=== PATIENT | female | born 1965 | race American Indian/Alaskan Native ===

== ENCOUNTER 2016-12-06 08:40 | Emergency (ER) | payer SELFPAY ==
[2016-12-06] MEDS ORDERED: ZOFRAN IV ONE (20:24)
[2016-12-06] MEDS ORDERED: CATAPRES PO ONE (20:24)
[2016-12-06] MEDS ORDERED: ATIVAN IV ONE (20:24)
[2016-12-06 20:56] LABS: Bilirubin,Urine Negative (Negative); Blood,Urine Large (Negative); Ketones,Urine 20 mg/dL (Negative); Urobilinogen,Urine < 2.0 mg/dL (<2.0)
[2016-12-06 20:57] LABS: Leukocyte Esterase,Urine Negative (Negative); Nitrite,Urine Negative (Negative); WBC,Urine < 1.0 /HPF (0.0-6.0)
[2016-12-06 20:58] LABS: Hematocrit 46.2 % (30.3-42.9); Hemoglobin 15.5 gm/dl (10.1-14.3); Mean Corpuscular HGB Conc 34 % (30-34); Mean Corpuscular Hemoglobin 34 pg (28-32); Mean Corpuscular Volume 101 fl (79-97); Red Blood Count 4.57 M/mm3 (3.65-5.03); Red Cell Distribution Width 13.4 % (13.2-15.2)
[2016-12-06 20:59] LABS: Platelet Count 237 K/mm3 (140-440)
[2016-12-06] MEDS ORDERED: NACL 0.9% 1000 ML 1,000 ML IV ONE (21:40)
--- NOTE | 2016-12-06 21:42 | Emergency Department Report ---
ED Abdominal Pain HPI - General Chief Complaint: Abdominal Pain Time Seen by Provider: 12/06/16 20:05 Source: patient Mode of arrival: Ambulatory Limitations: No Limitations - History of Present Illness Initial Comments: 51-year-old female with past medical history hypertension and previous surgical history of tubal ligation presents to the hospital complains of several months of abdominal pain, intermittent tremors, and nausea with associated mild vomiting and diarrhea 2-3 times daily. Patient also complains of increased sweating at nighttime. She's versus concern for Parkinson's given family history. Patient does admit to drinking alcohol daily states she has a history of "fatty liver". Patient drinks 2 glasses of liquor or wine daily. Patient drank a little yesterday because she did not feel well. Patient has not been on blood pressure medication for several years for hypertension. Pain is maximal at the right upper quadrant, moderate to severe in intensity, improved with Aleve, worse with palpation. No complaints of chest pain, headache, or focal weakness or numbness. No reports of melena, hematochezia, or fever. Severity scale (0 -10): 3 - Related Data Previous Rx's Medication Instructions Recorded Last Taken Type HYDROcodone/APAP 5-325 [[place] 1 each PO Q6HR PRN #20 tablet 12/07/16 Unknown Rx 5/325] Ondansetron [Zofran Odt] 4 mg PO Q8HR #20 tab.rapdis 12/07/16 Unknown Rx Pantoprazole [Protonix TAB] 20 mg PO QDAY #30 tablet. 12/07/16 Unknown Rx amLODIPine [Norvasc] 5 mg PO DAILY #30 tab 12/07/16 Unknown Rx chlordiazePOXIDE [Librium] 25 mg PO Q6H PRN #20 capsule 12/07/16 Unknown Rx Allergies Allergy/AdvReac Type Severity Reaction Status Date / Time No Known Allergies Allergy Unverified 12/06/16 18:54 ED Review of Systems ROS: Stated complaint: Other details as noted in HPI Comment: All other systems reviewed and negative Other: Constitutional: No fevers chills Eyes: No eye pain visual changes ENT: No ear pain or throat pain Neck: Denies pain Respiratory: Denies cough wheezing shortness of breath Cardiovascular: Denies chest pain, palpitations, syncope GI: As per HPI : Denies dysuria Musculoskeletal: Denies back pain, joint swelling Skin: Denies rash, lesions, erythema Neurologic: Denies headache, numbness, weakness Psychiatric: Denies suicidal ideation, hallucinations ED Past Medical Hx - Past Medical History Previous Medical History?: Yes Hx Hypertension: Yes Additional medical history: Fatty Liver - Surgical History Past Surgical History?: No - Social History Smoking Status: Never Smoker Substance Use Type: Alcohol, Marijuana - Medications Home Medications: Home Medications Medication Instructions Recorded Confirmed Last Taken Type HYDROcodone/APAP 5-325 [[place] 1 each PO Q6HR PRN #20 tablet 12/07/16 Unknown Rx 5/325] Ondansetron [Zofran Odt] 4 mg PO Q8HR #20 tab.rapdis 12/07/16 Unknown Rx Pantoprazole [Protonix TAB] 20 mg PO QDAY #30 tablet.dr 12/07/16 Unknown Rx amLODIPine [Norvasc] 5 mg PO DAILY #30 tab 12/07/16 Unknown Rx chlordiazePOXIDE [Librium] 25 mg PO Q6H PRN #20 capsule 12/07/16 Unknown Rx ED Physical Exam - Other Other exam information: General: No limitations, patient is alert in no acute distress Head exam: Atraumatic, normocephalic Eyes exam: Normal appearance, pupils equal reactive to light, extraocular movements intact ENT: Moist mucous membrane, normal oropharynx Neck exam: Normal inspection, full range of motion, no meningismus nontender Respiratory exam: Clear to auscultation bilateral, no wheezes, rales, crackles Cardiovascular: Normal rate and rhythm, normal heart sounds Abdomen: Soft, nondistended, right upper quadrant tenderness, with normal bowel sounds, no rebound, or guarding Extremity: Full range of motion normal inspection no deformity Back: Normal Inspection, full range of motion, no tenderness Neurologic: Alert, oriented x3, cranial nerves intact, no motor or sensory deficit, mild tremor noted Psychiatric: normal affect, normal mood Skin: Warm, dry, intact ED Course Vital Signs 12/06/16 12/06/16 12/06/16 17:34 17:45 18:00 Pulse Rate 87 Respiratory 16 Rate Blood Pressure 214/116 Blood Pressure 211/124 [Left] O2 Sat by Pulse 99 99 97 Oximetry 12/06/16 12/06/16 12/06/16 18:30 18:34 19:00 Pulse Rate Respiratory 16 Rate Blood Pressure 199/130 207/118 Blood Pressure [Left] O2 Sat by Pulse 98 99 98 Oximetry 12/06/16 19:30 Pulse Rate Respiratory Rate Blood Pressure 205/124 Blood Pressure [Left] O2 Sat by Pulse 99 Oximetry - Reevaluation(s) Reevaluation #1: 12/06/16 21:40 Patient treated with clonidine, Ativan, normal saline, and Zofran ED Medical Decision Making - Lab Data Result diagrams: 12/06/16 09:09 12/06/16 Unknown Lab Results 12/06/16 12/06/16 12/06/16 Range/Units 09:09 09:09 Unknown WBC 8.0 (4.5-11.0) K/mm3 RBC 4.57 (3.65-5.03) M/mm3 Hgb 15.5 H (10.1-14.3) gm/dl Hct 46.2 H (30.3-42.9) % MCV 101 H (79-97) fl MCH 34 H (28-32) pg MCHC 34 (30-34) % RDW 13.4 (13.2-15.2) % Plt Count 237 (140-440) K/mm3 Sodium 138 (137-145) mmol/L Potassium 4.1 (3.6-5.0) mmol/L Chloride 94.7 L (98-107) mmol/L Carbon Dioxide 25 (22-30) mmol/L Anion Gap 22 mmol/L BUN 5 L (7-17) mg/dL Creatinine 0.6 L (0.7-1.2) mg/dL Estimated GFR > 60 ml/min BUN/Creatinine Ratio 8.33 % Glucose 130 H (65-100) mg/dL Calcium 9.8 (8.4-10.2) mg/dL Magnesium (1.7-2.3) mg/dL Total Bilirubin 1.3 H (0.1-1.2) mg/dL AST 147 H (5-40) units/L ALT 69 H (7-56) units/L Alkaline Phosphatase 77 (35-129) units/L Total Protein 9.1 H (6.3-8.2) g/dL Albumin 4.8 (3.9-5) g/dL Albumin/Globulin Ratio 1.1 % Lipase 33 (13-60) units/L Urine Color Yellow (Yellow) Urine Turbidity Clear (Clear) Urine pH 8.0 H (5.0-7.0) Ur Specific [place] 1.012 (1.003-1.030) Urine Protein 30 mg/dl (Negative) mg/dL Urine Glucose (UA) Negative (Negative) mg/dL Urine Ketones 20 (Negative) mg/dL Urine Blood Large (Negative) Urine Nitrite Negative (Negative) Urine Bilirubin Negative (Negative) Urine Urobilinogen < 2.0 (<2.0) mg/dL Ur Leukocyte Esterase Negative (Negative) Urine WBC (Auto) < 1.0 (0.0-6.0) /HPF Urine RBC (Auto) 1.0 (0.0-6.0) /HPF U Epithel Cells (Auto) 2.0 (0-13.0) /HPF Urine HCG, Qual Negative (Negative) 12/06/16 Range/Units Unknown WBC (4.5-11.0) K/mm3 RBC (3.65-5.03) M/mm3 Hgb (10.1-14.3) gm/dl Hct (30.3-42.9) % MCV (79-97) fl MCH (28-32) pg MCHC (30-34) % RDW (13.2-15.2) % Plt Count (140-440) K/mm3 Sodium (137-145) mmol/L Potassium (3.6-5.0) mmol/L Chloride (98-107) mmol/L Carbon Dioxide (22-30) mmol/L Anion Gap mmol/L BUN (7-17) mg/dL Creatinine (0.7-1.2) mg/dL Estimated GFR ml/min BUN/Creatinine Ratio % Glucose (65-100) mg/dL Calcium (8.4-10.2) mg/dL Magnesium 1.4 L (1.7-2.3) mg/dL Total Bilirubin (0.1-1.2) mg/dL AST (5-40) units/L ALT (7-56) units/L Alkaline Phosphatase (35-129) units/L Total Protein (6.3-8.2) g/dL Albumin (3.9-5) g/dL Albumin/Globulin Ratio % Lipase (13-60) units/L Urine Color (Yellow) Urine Turbidity (Clear) Urine pH (5.0-7.0) Ur Specific [place] (1.003-1.030) Urine Protein (Negative) mg/dL Urine Glucose (UA) (Negative) mg/dL Urine Ketones (Negative) mg/dL Urine Blood (Negative) Urine Nitrite (Negative) Urine Bilirubin (Negative) Urine Urobilinogen (<2.0) mg/dL Ur Leukocyte Esterase (Negative) Urine WBC (Auto) (0.0-6.0) /HPF Urine RBC (Auto) (0.0-6.0) /HPF U Epithel Cells (Auto) (0-13.0) /HPF Urine HCG, Qual (Negative) - Radiology Data Radiology results: report reviewed Abdominal ultrasound: Fatty infiltration of liver otherwise negative CT abdomen and pelvis IV contrast: Fibroids, diverticulosis, fatty liver. Mild perinephric straining bilateral chronicity unknown. Correlate with UA for mild pyelonephritis - Medical Decision Making bp and symptoms improved ED treatment. pt will be d/ed home with meds for sx tx and htn. - Differential Diagnosis hypertension emergency, alcohol withdrawal, PUD, cholelithiasis, gastroente Critical Care Time: No Critical care attestation.: If time is entered above; I have spent that time in minutes in the direct care of this critically ill patient, excluding procedure time. ED Disposition Clinical Impression: Uncontrolled hypertension, Noncompliance with medication regimen, Alcohol abuse , Tremor, Hypomagnesemia, RUQ abdominal pain, Fatty liver Disposition: DISCHARGED TO HOME OR SELFCARE Is pt being admited?: No Does the pt Need Aspirin: No Condition: Stable Instructions: Abdominal Pain (ED), Hypertension (ED), Abuse of Alcohol (ED) Additional Instructions: Take the medication as prescribed. Your tremors a likely secondary to alcohol use and possible withdrawal symptoms. Take the prescribed medication to help with tremors if he decides to stop drinking alcohol. Do not quit cold turkey because your symptoms may worsen. Follow-up with the resources provided for help with alcohol withdrawal treatment. Prescriptions: amLODIPine [Norvasc] 5 mg PO DAILY #30 tab chlordiazePOXIDE [Librium] 25 mg PO Q6H PRN #20 capsule PRN Reason: Alcohol Withdrawal HYDROcodone/APAP 5-325 [[place] 5/325] 1 each PO Q6HR PRN #20 tablet PRN Reason: Pain Ondansetron [Zofran Odt] 4 mg PO Q8HR #20 tab.rapdis Pantoprazole [Protonix TAB] 20 mg PO QDAY #30 tablet.dr Referrals: [facility] [Provider Group] - 3-5 Days (primary clinic) [facility] [Outside] - 3-5 Days (clinic for alcohol treament) [facility] [Other] - 3-5 Days (clinic for alcohol treament) GALINA SINGH MD, PHD [Staff Physician] - 3-5 Days (Primary care doctor) Forms: Work/School Release Form(ED) Time of Disposition: 01:16
[2016-12-06 21:43] LABS: Anion Gap 22 mmol/L; BUN/Creatinine Ratio 8.33; Blood Urea Nitrogen 5 mg/dL (7-17); Carbon Dioxide 25 mmol/L (22-30); Chloride 94.7 mmol/L (98-107); Potassium 4.1 mmol/L (3.6-5.0); Sodium 138 mmol/L (137-145)
[2016-12-06 21:44] LABS: Alanine Aminotransferase 69 units/L (7-56); Alkaline Phosphatase 77 units/L (35-129); Bilirubin,Total 1.3 mg/dL (0.1-1.2); Calcium 9.8 mg/dL (8.4-10.2); Glucose 130 mg/dL (65-100); Lipase 33 units/L (13-60); Total Protein 9.1 g/dL (6.3-8.2)
[2016-12-06 21:58] LABS: Albumin 4.8 g/dL (3.9-5); Albumin/Globulin Ratio 1.1 %
[2016-12-06] MEDS ORDERED: MAGNESIUM SULFATE 2GM/50ML 2 GM/50 ML BAG IV ONE (22:52)
--- NOTE | 2016-12-06 23:01 | Ultrasound Report ---
FINAL REPORT EXAM: US ABDOMEN LIMITED HISTORY: ruq pain, elevated lft TECHNIQUE: Real-time sonography was performed of the right upper quadrant and images are submitted for interpretation. PRIORS: None. FINDINGS: There is diffuse increased echogenicity of the liver consistent with fatty infiltration. The gallbladder appears normal without stones. There is no evidence of biliary dilatation, the common bile duct measures 2 millimeters. The pancreas has a normal echogenicity and appearance. The visualized segments of the abdominal aorta and inferior vena cava appear normal. The right kidney appears normal in size, shape and echogenicity, measuring 11.0 x 3.8 x 5.2 cm. IMPRESSION: Diffuse fatty infiltration of the liver. Otherwise, normal right upper quadrant ultrasound.
[2016-12-07] MEDS ORDERED: NACL ONE (00:08)
--- NOTE | 2016-12-07 00:25 | Cat Scan Report ---
FINAL REPORT EXAM: CT ABDOMEN PELVIS W CON HISTORY: abd pain, diarhea, nausea TECHNIQUE: CT abdomen and pelvis with IV contrast. Multiplanar reformations. PRIORS: None FINDINGS: Lung bases show no significant abnormality. No free intraperitoneal gas seen. Diffuse fatty infiltration of the liver noted. No focal hepatic lesion. Normal-appearing biliary tree and gallbladder. Spleen shows no significant abnormality. Adrenal glands show no significant abnormality. Mild perinephric stranding bilaterally, chronicity unknown. Pancreas shows no significant abnormality. Abdominal aorta is non-aneurysmal. Uterus is enlarged, containing multiple fibroids. Normal-appearing appendix. No right lower quadrant inflammatory changes. No bowel obstruction identified. Numerous scattered diverticula throughout the colon. No evidence of diverticulitis. IMPRESSION: 1. Fibroids. Diverticulosis. Fatty liver. 2. Mild perinephric stranding bilaterally, chronicity unknown. Correlate with urinalysis to exclude early or subtle pyelonephritis.
[2016-12-07 01:08] VITALS: BP 157/99
== END 2016-12-07 02:00 | disposition home or self-care (01) ==
LOC: ED 08:40
DX: I10 Essential (primary) hypertension (principal); F10.10 Alcohol abuse, uncomplicated; R25.1 Tremor, unspecified; E83.42 Hypomagnesemia; R10.11 Right upper quadrant pain; K76.0 Fatty (change of) liver, not elsewhere classified; F12.10 Cannabis abuse, uncomplicated; Z91.14 Patient's other noncompliance with medication regimen
CPT/HCPCS: 36415; 74177; 76705; 80053; 81001; 81025; 83690; 83735; 85027; 96361; 96374; 96375; 99284; J2060; J2405; J3475; J7030; Q9967

== ENCOUNTER 2016-12-25 09:16 | Emergency (ER) | payer SELFPAY ==
[2016-12-25 10:07] VITALS: BP 155/101
--- NOTE | 2016-12-25 10:40 | XRay Report ---
RIGHT ANKLE, 3 views: History: Edema, pain after fall. Findings: Mild soft tissue swelling is identified. No acute osseous abnormality or joint pathology is identified. The fifth metatarsal base is intact. Impression: Soft tissue swelling. No acute osseous injury.
--- NOTE | 2016-12-25 11:47 | Emergency Department Report ---
ED Lower Extremity HPI - General Chief Complaint: Extremity Injury, Lower Stated Complaint: RT FOOT INJURY Time Seen by Provider: 12/25/16 11:36 Source: patient Mode of arrival: Wheelchair Limitations: No Limitations - History of Present Illness Initial Comments: Stepped off curb yesterday and twisted ankle. Also hit knees. Pain to R ankle only. No numbness. Complaint: ankle injury -: Sudden, days(s) (1) Injury: Ankle: Right Type of Injury: inversion Place: street/outdoors Severity: moderate Severity scale (0 -10): 6 Improves With: nothing Worsens With: nothing Context: fall Associated Symptoms: swelling, unable to bear weight - Related Data Previous Rx's Medication Instructions Recorded Last Taken Type HYDROcodone/APAP 5-325 [[place] 1 each PO Q6HR PRN #20 tablet 12/07/16 Unknown Rx 5/325] Ondansetron [Zofran Odt] 4 mg PO Q8HR #20 tab.rapdis 12/07/16 Unknown Rx Pantoprazole [Protonix TAB] 20 mg PO QDAY #30 tablet. 12/07/16 Unknown Rx amLODIPine [Norvasc] 5 mg PO DAILY #30 tab 12/07/16 Unknown Rx chlordiazePOXIDE [Librium] 25 mg PO Q6H PRN #20 capsule 12/07/16 Unknown Rx Naproxen [Naprosyn] 500 mg PO BID #20 tablet 12/25/16 Unknown Rx Allergies Allergy/AdvReac Type Severity Reaction Status Date / Time No Known Allergies Allergy Unverified 12/06/16 18:54 ED Review of Systems ROS: Stated complaint: RT FOOT INJURY Other details as noted in HPI Comment: All other systems reviewed and negative Constitutional: denies: chills, fever Eyes: denies: eye pain, eye discharge, vision change ENT: denies: ear pain, throat pain Respiratory: denies: cough, shortness of breath, wheezing Cardiovascular: denies: chest pain, palpitations Endocrine: no symptoms reported Gastrointestinal: denies: abdominal pain, nausea, diarrhea Genitourinary: denies: urgency, dysuria, discharge Musculoskeletal: joint swelling, arthralgia. denies: back pain Skin: denies: rash, lesions Neurological: denies: headache, weakness, paresthesias Psychiatric: denies: anxiety, depression Hematological/Lymphatic: denies: easy bleeding, easy bruising ED Past Medical Hx - Past Medical History Previous Medical History?: Yes Hx Hypertension: Yes Additional medical history: Fatty Liver - Surgical History Past Surgical History?: No - Social History Smoking Status: Never Smoker Substance Use Type: Alcohol - Medications Home Medications: Home Medications Medication Instructions Recorded Confirmed Last Taken Type HYDROcodone/APAP 5-325 [[place] 1 each PO Q6HR PRN #20 tablet 12/07/16 Unknown Rx 5/325] Ondansetron [Zofran Odt] 4 mg PO Q8HR #20 tab.rapdis 12/07/16 Unknown Rx Pantoprazole [Protonix TAB] 20 mg PO QDAY #30 tablet.dr 12/07/16 Unknown Rx amLODIPine [Norvasc] 5 mg PO DAILY #30 tab 12/07/16 Unknown Rx chlordiazePOXIDE [Librium] 25 mg PO Q6H PRN #20 capsule 12/07/16 Unknown Rx Naproxen [Naprosyn] 500 mg PO BID #20 tablet 12/25/16 Unknown Rx ED Physical Exam - General Limitations: No Limitations General appearance: alert, in no apparent distress - Head Head exam: Present: atraumatic, normocephalic - Eye Eye exam: Present: normal appearance - ENT ENT exam: Present: mucous membranes moist - Neck Neck exam: Present: normal inspection - Respiratory Respiratory exam: Present: normal lung sounds bilaterally. Absent: respiratory distress - Cardiovascular Cardiovascular Exam: Present: regular rate, normal rhythm. Absent: systolic murmur, diastolic murmur, rubs, gallop - GI/Abdominal GI/Abdominal exam: Present: soft, normal bowel sounds - Extremities Exam Extremities exam: Present: other (Contusions to bilateral knee but FROM. R ankle with lateral swelling. Foot with mild swelling, nontender. CMS intact. ) - Back Exam Back exam: Present: normal inspection - Neurological Exam Neurological exam: Present: alert, oriented X3 - Psychiatric Psychiatric exam: Present: normal affect, normal mood - Skin Skin exam: Present: warm, dry, intact, normal color. Absent: rash ED Course Vital Signs 12/25/16 10:03 Temperature 98.6 F Pulse Rate 100 H Respiratory 16 Rate Blood Pressure 155/101 O2 Sat by Pulse 99 Oximetry - Reevaluation(s) Reevaluation #1: 12/25/16 11:45 NAD, stable for d/c. ED Lower Extremity MDM - Radiology Data Radiology results: report reviewed no fx - Medical Decision Making Pt with ankle sprain. Will follow up. - Differential Diagnosis sprain vs fx Critical care attestation.: If time is entered above; I have spent that time in minutes in the direct care of this critically ill patient, excluding procedure time. ED Disposition Clinical Impression: Right ankle sprain Qualifiers: Encounter type: initial encounter Involved ligament of ankle: other ligament Qualified Code(s): S93.491A - Sprain of other ligament of right ankle, initial encounter Disposition: DISCHARGED TO HOME OR SELFCARE Is pt being admited?: No Condition: Good Instructions: Ankle Sprain (ED) Prescriptions: Naproxen [Naprosyn] 500 mg PO BID #20 tablet Referrals: PRIMARY CAREMD [Primary Care Provider] - 3-5 Days KYM HOWE MD [Staff Physician] - 3-5 Days Forms: Work/School Release Form(ED) Time of Disposition: 11:46
== END 2016-12-25 12:40 | disposition home or self-care (01) ==
LOC: ED 09:16
DX: S93.491A Sprain of other ligament of right ankle, initial encounter (principal); I10 Essential (primary) hypertension; W50.2XXA Accidental twist by another person, initial encounter; Y93.89 Activity, other specified; Y99.9 Unspecified external cause status; Y92.410 Unspecified street and highway as the place of occurrence of the external cause